=== PATIENT | male | born 1970 | race Caucasian/White ===

== ENCOUNTER 2024-05-14 14:03 | Emergency (ER) | payer BC ==
[~2024-05-14] VITALS: Ht 182.9 cm; Wt 93.2 kg
[2024-05-14] MEDS ORDERED: HYDR-3965 PO (15:36)
[2024-05-14 15:46] VITALS: BP 140/82; PULSE 65; RESP 17; TEMP 98; O2SAT 99
== END 2024-05-14 15:48 | disposition home or self-care (01) ==
LOC: ER 14:04
DX: S52.101A Unspecified fracture of upper end of right radius, initial encounter for closed fracture (principal); S52.201A Unspecified fracture of shaft of right ulna, initial encounter for closed fracture; X58.XXXA Exposure to other specified factors, initial encounter; Y93.89 Activity, other specified; Y92.89 Other specified places as the place of occurrence of the external cause; Y99.8 Other external cause status
CPT/HCPCS: 29125; 73090; 99283; A4565; A6446; A6449